=== PATIENT | male | born 1980 | race Caucasian/White ===

== ENCOUNTER 2019-10-27 16:49 | Emergency (ER) | payer OTHER, SELFPAY ==
--- NOTE | ~2019-10-27 | XR_ITS ---
EXAMINATION: XR foot RT min 3V DATE: 10/27/2019 17:26 INDICATION: Lateral right foot pain. TECHNIQUE: 4 views of right foot were obtained. COMPARISON: None. FINDINGS: There is a bunionette deformity of the fifth digit. There are old healed fractures of the d iaphyses of the second and third metatarsals. No acute fracture. There is mild osteoarthritis of firs t metatarsophalangeal joint and some of the interphalangeal joints and midfoot joints. There are enth esophytes at the posterior and plantar aspects of calcaneal tuberosity. IMPRESSION: 1. Bunionette. 2. Mild polyarticular osteoarthritis. Reviewed, dictated and finalized at location A. WARD[facility]
[2019-10-27 17:02] VITALS: BP 156/103; PULSE 100; RESP 20; TEMP 37; O2SAT 97
[2019-10-27 17:18] VITALS: BP 162/104
--- NOTE | 2019-10-27 17:30 | ED.EXTPRO ---
HPI - Extremity Problem General Chief complaint: Extremity Problem,Nontraumatic Stated complaint: Right Foot Pain Source: patient Mode of arrival: ambulatory Limitations: no limitations History of Present Illness HPI Narrative: Patient is a 39-year-old male who presents complaining of right foot pain. Patient reports walking with a loose shoes approximately 2 weeks ago and turned foot. Patient reports increased pain over the past week. He denies taking [id number] medications for pain. He denies other complaints. MD Complaint: extremity pain Related Data Allergies Allergy/AdvReac Type Severity Reaction Status Date / Time No Known Allergies Allergy Unverified 09/06/16 15:38 Review of Systems Review of Systems: Narrative: CONSTITUTIONAL: Denies fever, chills, or sweats. EYES: Denies visual changes, redness, or discharge. ENT: Denies rhinorrhea, congestion, sore throat, or otalgia. CARDIOVASCULAR: Denies chest pain, palpitations, or edema. RESPIRATORY: Denies cough or dyspnea. GASTROINTESTINAL: Denies abdominal pain, nausea, vomiting, or diarrhea. GENITOURINARY: Denies dysuria or hematuria. SKIN: Denies rash or itching. MUSCULOSKELETAL: Denies back pain, reports right foot pain NEUROLOGIC: Denies headache, numbness, dizziness, or weakness. PSYCHIATRIC: Denies anxiety or depression. PMFSH Past Medical History Medical History (Updated 10/27/19 @ 17:37 by SADE Quezada) Angina pectoris, unspecified Anxiety Arthritis Depression Fractures GERD (gastroesophageal reflux disease) History of dental problems HTN (hypertension) Suicide attempt UTI (urinary tract infection) Surgical History Surgical History (Updated 10/27/19 @ 17:34 by SADE Quezada) No pertinent past surgical history Social History Social History (Updated 10/27/19 @ 17:34 by SADE Quezada) Smoking status: Current every day smoker Alcohol intake: current Alcohol use details: Daily Substance use: never Gender identity (if verbalized by the patient): Male Exam Narrative: Exam Narrative: GENERAL: Well-appearing, well-nourished, and in no acute distress. HEAD: Normocephalic, atraumatic. EYES: EOMI. CHEST: No respiratory distress. Clear to auscultation. HEART: Regular rate and rhythm. No murmur appreciated. Normal peripheral pulses. GI: Soft, nontender without rebound, or guarding. No distention. Bowel sounds normal in all quadrants. MUSCULOSKELETAL: Point tenderness with palpation to right lateral metatarsal, no swelling or deformity noted EXTREMITIES: Normal range of motion. No edema. SKIN: Warm, dry, no rash. NEURO: No focal deficits. Alert and oriented x3. Gait steady. PSYCH: Normal affect. No signs of depression or anxiety. Course Vital Signs Vital signs: Vital Signs Temperature 37.0 C 10/27/19 17:02 Pulse Rate 100 10/27/19 17:02 Respiratory Rate 20 10/27/19 17:02 Blood Pressure 156/103 H 10/27/19 17:02 Pulse Oximetry 97 10/27/19 17:02 Temperature 37.0 C 10/27/19 17:02 Pulse Rate 100 10/27/19 17:02 Respiratory Rate 10/27/19 17:02 Blood Pressure 162/104 H 10/27/19 17:18 Pulse Oximetry 97 10/27/19 17:02 Reviewed. Patient has been instructed to follow-up with his PCP regarding his blood pressure. MDM - Extremity (Nontraumatic) MDM Narrative Medical decision making narrative: Patient has no acute injury per x-ray. Discussed plan of care with patient. Discussed taking NSAIDs for relief. Patient agrees with plan of care, patient is stable for discharge to home with outpatient follow-up. Differential Diagnosis Differential diagnosis: Likely gout and other (Fracture, arthritis,) Critical Care Time Critical Care Time Critical Care Time: No Discharge Plan Discharge Clinical Impression: Arthritis Patient Disposition: Home, Self-Care Condition: Stable Instructions: Antibiotic Form, Arthritis (ED) Additional Instructions: Take medication
== END 2019-10-27 17:45 | disposition home or self-care (01) ==
PROVIDERS: Emergency Provider Nurse Practitioner
DX: M19.071 Primary osteoarthritis, right ankle and foot (principal); I20.9 Angina pectoris, unspecified; K21.9 Gastro-esophageal reflux disease without esophagitis; I10 Essential (primary) hypertension; F17.200 Nicotine dependence, unspecified, uncomplicated
CPT/HCPCS: 73630; 99213; G0463